=== PATIENT | female | born 1985 | race Caucasian/White ===

== ENCOUNTER 2018-12-27 13:37 | Emergency (ER) | payer OTHER ==
--- NOTE | 2018-12-27 13:48 | ER Report ---
History and Physical Time Seen By MD: 13:48 HPI/ROS CHIEF COMPLAINT: Seizure HISTORY OF PRESENT ILLNESS: 33-year-old female patient presents to emergency room with complaint of seizures. Patient does have a history of seizures. She states that they were traveling from [facility] back to [place], where they live. The significant other states that patient had a seizure while on the road. She states that the patient became very sweaty, which is normal for her prior to having seizure. Patient states that she has been taking her seizure medication. She states prior to that she was having up to 30 seizures a day. She states that since then it has gone down to 1-2 seizures a day. She denies any nausea, vomiting, diarrhea. She denies any fevers but states she has been chilled. REVIEW OF SYSTEMS: Respiratory: No cough, no dyspnea. Cardiovascular: No chest pain, no palpitations. Gastrointestinal: No vomiting, no abdominal pain. Musculoskeletal: No back pain. Allergies: Coded Allergies: Penicillins (Verified Allergy, Severe, HIVES, 12/27/18) Home Meds Reported Medications Fluticasone/Salmeterol (ADVAIR 250-50 DISKUS) 1 Each Disk.w.dev, 1 EACH IH BID 12/27/18 Montelukast Sodium (SINGULAIR) 10 Mg Tablet, 1 TAB PO QDAY, TAB 12/27/18 Oxcarbazepine (OXTELLAR XR) 600 Mg Tab.er.24h, 600 MG PO QDAY 12/27/18 Clonazepam (KLONOPIN) 0.5 Mg Tablet, 0.5 MG PO BID, #10 TAB 12/27/18 Bupropion Hcl (WELLBUTRIN XL) 300 Mg Tab.er.24h, 300 MG PO QDAY, TAB 12/27/18 Past Medical/Surgical History Patient has a past medical history of seizures, tachycardia, asthma, IBS, hiatal hernia, back pain, alcohol abuse, PTSD. Patient has surgical history of back surgery 3, oral surgery. Reviewed Nurses Notes: Yes Constitutional Vital Sign - Last 24 Hours 12/27/18 12/27/18 12/27/18 12/27/18 13:37 13:44 14:07 14:23 Temp 98.1 Pulse 99 95 95 Resp 14 12 12 B/P (MAP) 128/99 (109) 127/101 (110) 127/101 Pulse Ox 93 92 94 O2 Delivery Room Air 12/27/18 12/27/18 12/27/18 14:30 14:37 15:00 Pulse 89 Resp 19 B/P (MAP) 146/107 (120) 118/79 (92) Pulse Ox 97 Physical Exam General Appearance: The patient is alert, has no immediate need for airway protection and no current signs of toxicity. Patient is diaphoretic. Respiratory: Chest is non tender, lungs are clear to auscultation. Cardiac: regular rate and rhythm Gastrointestinal: Abdomen is soft and non tender, no masses, bowel sounds normal. Musculoskeletal: Neck: Neck is supple and non tender. Extremities have full range of motion and are non tender. Skin: No rashes or lesions. Neuro: Patient is alert and oriented 4, cranial nerves II through XII grossly intact. DIFFERENTIAL DIAGNOSIS: After history and physical exam differential diagnosis was considered for a seizure including but not limited to electrolyte abnormality, alcohol withdrawal, medication noncompliance, head injury, and breakthrough seizure. Medical Decision Making Data Points Result Diagram: 12/27/18 1400 12/27/18 1400 Laboratory Hematology Test 12/27/18 14:00 12/27/18 14:15 12/27/18 14:20 Red Blood Count 5.13 M/uL (4.17-5.56) Mean Corpuscular Volume 91.6 fL (80.0-96.0) Mean Corpuscular Hemoglobin 30.9 pg (26.0-33.0) Mean Corpuscular Hemoglobin Concent 33.8 g/dL (32.0-36.0) Red Cell Distribution Width 13.3 % (11.5-14.5) Mean Platelet Volume 7.5 fL (7.2-11.1) Neutrophils (%) (Auto) 56.8 % (39.4-72.5) Lymphocytes (%) (Auto) 33.8 % (17.6-49.6) Monocytes (%) (Auto) 6.0 % (4.1-12.4) Eosinophils (%) (Auto) 2.8 % (0.4-6.7) Basophils (%) (Auto) 0.6 % (0.3-1.4) Nucleated RBC Relative Count (auto) 0.0 /100WBC Neutrophils # (Auto) 3.6 K/uL (2.0-7.4) Lymphocytes # (Auto) 2.2 K/uL (1.3-3.6) Monocytes # (Auto) 0.4 K/uL (0.3-1.0) Eosinophils # (Auto) 0.2 K/uL (0.0-0.5) Basophils # (Auto) 0.0 K/uL (0.0-0.1) Nucleated RBC Absolute Count (auto) 0.00 K/uL Sodium Level 144 mmol/L (137-145) Potassium Level 3.7 mmol/L (3.5-5.0) Chloride Level 105 mmol/L (98-107) Carbon Dioxide Level 24 mmol/L (22-31) Blood Urea Nitrogen 12 mg/dl (7-18) Creatinine 0.60 mg/dl (0.52-1.04) Glomerular Filtration Rate Calc > 60.0 Random Glucose 104 mg/dl (75-110) Calcium Level 9.8 mg/dl (8.4-10.2) Magnesium Level 1.9 mg/dl (1.7-2.2) Total Bilirubin 0.2 mg/dl (0.2-1.3) Aspartate Amino Transf (AST/SGOT) 23 U/L (0-35) Alanine Aminotransferase (ALT/SGPT) 13 U/L (0-56) Alkaline Phosphatase 76 U/L (0-126) Total Protein 9.0 g/dl (6.3-8.2) Albumin 5.5 g/dl (3.5-5.0) Human Chorionic Gonadotropin, Qual Negative (NEGATIVE) Serum Alcohol < 10 mg/dl Influenza Virus Type A (PCR) Negative (NEGATIVE) Influenza Virus Type B (PCR) Negative (NEGATIVE) Whole Blood Glucose 104 mg/DL (75-110) Chemistry Test 12/27/18 14:00 12/27/18 14:15 12/27/18 14:20 White Blood Count 6.4 k/uL (4.5-11.0) Red Blood Count 5.13 M/uL (4.17-5.56) Hemoglobin 15.9 g/dL (12.0-16.0) Hematocrit 47.0 % (34.0-47.0) Mean Corpuscular Volume 91.6 fL (80.0-96.0) Mean Corpuscular Hemoglobin 30.9 pg (26.0-33.0) Mean Corpuscular Hemoglobin Concent 33.8 g/dL (32.0-36.0) Red Cell Distribution Width 13.3 % (11.5-14.5) Platelet Count 292 K/uL (150-450) Mean Platelet Volume 7.5 fL (7.2-11.1) Neutrophils (%) (Auto) 56.8 % (39.4-72.5) Lymphocytes (%) (Auto) 33.8 % (17.6-49.6) Monocytes (%) (Auto) 6.0 % (4.1-12.4) Eosinophils (%) (Auto) 2.8 % (0.4-6.7) Basophils (%) (Auto) 0.6 % (0.3-1.4) Nucleated RBC Relative Count (auto) 0.0 /100WBC Neutrophils # (Auto) 3.6 K/uL (2.0-7.4) Lymphocytes # (Auto) 2.2 K/uL (1.3-3.6) Monocytes # (Auto) 0.4 K/uL (0.3-1.0) Eosinophils # (Auto) 0.2 K/uL (0.0-0.5) Basophils # (Auto) 0.0 K/uL (0.0-0.1) Nucleated RBC Absolute Count (auto) 0.00 K/uL Glomerular Filtration Rate Calc > 60.0 Calcium Level 9.8 mg/dl (8.4-10.2) Magnesium Level 1.9 mg/dl (1.7-2.2) Total Bilirubin 0.2 mg/dl (0.2-1.3) Aspartate Amino Transf (AST/SGOT) 23 U/L (0-35) Alanine Aminotransferase (ALT/SGPT) 13 U/L (0-56) Alkaline Phosphatase 76 U/L (0-126) Total Protein 9.0 g/dl (6.3-8.2) Albumin 5.5 g/dl (3.5-5.0) Human Chorionic Gonadotropin, Qual Negative (NEGATIVE) Serum Alcohol < 10 mg/dl Influenza Virus Type A (PCR) Negative (NEGATIVE) Influenza Virus Type B (PCR) Negative (NEGATIVE) Whole Blood Glucose 104 mg/DL (75-110) Toxicology Test 12/27/18 14:00 Serum Alcohol < 10 mg/dl EKG/Imaging Imaging EXAMINATION: CT HEAD WITHOUT CONTRAST COMPARISON: None available HISTORY: Seizure. PROCEDURE: Noncontrast CT from the vertex through the skull base. One of the following dose optimization techniques was utilized in the performance of this exam: Automated exposure control; adjustment of the mA and/or kV according to the patient's size; or use of an iterative reconstruction technique. Specific details can be referenced in the facility's radiology CT exam operational policy. FINDINGS: Brain volume: Age-appropriate. Hemorrhage/extra-axial fluid: None. Mass effect/midline shift/edema: None. Ischemia: Hartmann-white differentiation is preserved. Ventricles and basal cisterns: Within normal limits. Posterior fossa: Negative. Vessels: Negative. Calvarium, skull base, and scalp: Negative. Visualized sinuses and orbits: Within normal limits. IMPRESSION: Negative noncontrast head CT. Report Dictated By: Jorge Barnhart MD at 12/27/2018 3:03 PM Report E-Signed By: Jorge Barnhart MD at 12/27/2018 3:09 PM ED Course/Re-evaluation ED Course Patient was admitted exam room, history and physical were obtained. Differential diagnoses were considered. On examination lungs are clear, heart is regular, abdomen soft nontender. Patient is alert and oriented 4. Patient is diaphoret ic. Within stating that that is common for her prior to her seizures we will go ahead and treat her with a dose of Ativan [address] scan of the head was done, a CBC, CMP were done. Lab results were unremarkable, and influenza screen was done which was also negative. CT scan of the head showed no acute findings. I discussed the findings with the patient and her significant other. We will go ahead and discharge her home. They're to continue on their way to [place]. They're to continue taking medication. She is to return to emergency room if she has worsening symptoms. I would like her to follow-up with her neurologist when she returns home to [place]. Patient and her significant other verbalized understanding and agreement with plan. Decision to Disposition Date: Dec 27, 2018 Decision to Disposition Time: 15:25 Depart Departure Latest Vital Signs Vital Signs Date Time Temp Pulse Resp B/P (MAP) Pulse Ox O2 Delivery O2 Flow Rate FiO2 12/27/18 15:00 118/79 (92) 12/27/18 14:37 89 19 97 12/27/18 14:23 98.1 Room Air Impression: Primary Impression: Seizure Condition: Improved Disposition: HOME OR SELF-CARE Patient Instructions: Recurrent Seizures in Adults (ED) Additional Instructions: Follow up with Neurology when you return home to [place]. Get plenty of rest. Try to do your relaxation techniques. Continue with your current medications. Go to an ER if you have any worsening of your condition en route. TRU BUSBY Dec 27, 2018 13:48
[2018-12-27] MEDS ORDERED: NS(*) 0.9% 1000 ML BAG 1,000 ML IV ONE (13:54)
[2018-12-27] MEDS ORDERED: LORazepam 2 MG/ML VIAL IVP ONE (13:55)
[2018-12-27 14:08] LABS: PLATELET COUNT, AUTOMATED 292 K/uL (150-450)
[2018-12-27] MEDS ORDERED: CLON0.5T66 PO (14:25)
[2018-12-27] MEDS ORDERED: BUPR-474 PO (14:25)
[2018-12-27] MEDS ORDERED: MONT10TA PO (14:26)
[2018-12-27] MEDS ORDERED: FLUT1DIS28 IH (14:26)
[2018-12-27] MEDS ORDERED: OXCA600T5 PO (14:26)
[2018-12-27 15:00] VITALS: BP 118/79
--- NOTE | 2018-12-27 15:13 | RADIOLOGY IMAGING REPORT ---
FACILITY: [facility] [place] PATIENT NAME: Elissa Noel : 1985 MR: [id number] V: [id number] EXAM DATE: ORDERING PHYSICIAN: TRU BUSBY TECHNOLOGIST: Location: [facility] [place] Patient: Elissa Noel : 1985 Visit/Account:[id number] Date of Sevice: 12/27/2018 EXAMINATION: CT HEAD WITHOUT CONTRAST COMPARISON: None available HISTORY: Seizure. PROCEDURE: Noncontrast CT from the vertex through the skull base. One of the following dose optimizat ion techniques was utilized in the performance of this exam: Automated exposure control; adjustment o f the mA and/or kV according to the patient's size; or use of an iterative reconstruction technique. Specific details can be referenced in the facility's radiology CT exam operational policy. FINDINGS: Brain volume: Age-appropriate. Hemorrhage/extra-axial fluid: None. Mass effect/midline shift/edema: None. Ischemia: Hartmann-white differentiation is preserved. Ventricles and basal cisterns: Within normal limits. Posterior fossa: Negative. Vessels: Negative. Calvarium, skull base, and scalp: Negative. Visualized sinuses and orbits: Within normal limits. IMPRESSION: Negative noncontrast head CT. Report Dictated By: Jorge Barnhart MD at 12/27/2018 3:03 PM Report E-Signed By: Jorge Barnhart MD at 12/27/2018 3:09 PM WSN:[id number]
== END 2018-12-27 15:34 | disposition home or self-care (01) ==
LOC: ER 13:53
DX: R56.9 Unspecified convulsions (principal)
CPT/HCPCS: 36416; 70450; 80320; 82948; 83735; 84703; 85025; 87502; 96361; 96374; 99284; J2060; J7030; 82040; 82247; 82310; 82374; 82435; 82565; 82947; 84075; 84132; 84155; 84295; 84450; 84460; 84520